=== PATIENT | male | born 1995 | race Caucasian/White ===

== ENCOUNTER → 2018-03-15 | Outpatient (CLI) | payer BC ==
--- NOTE | 2018-03-15 16:07 | RAD ---
Scrotal ultrasound History: Right scrotal pain for a few days. Comparison: None. Technique: Grayscale, color Doppler, and spectral Doppler imaging was performed of the scrotum and contents. Findings: Right testicle measures 2.3 x 2.4 x 4.5 cm. Left testicle measures 3.6 x 2.0 x 4.5 cm. Both testicles have homogeneous echogenicity and are without evidence of mass. The right epididymis demonstrates small cyst versus spermatocele measuring 5 mm. Left epididymis demonstrates small cyst versus spermatocele measuring 6 mm. Small bilateral hydroceles are seen. Bilateral testicles demonstrate normal vascular flow upon Doppler interrogation. There is no evidence of torsion. Impression: 1. No evidence of testicular mass or torsion. 2. Small bilateral epididymal cysts versus spermatoceles. 3. Small bilateral hydroceles. Electronically signed by: Jc Chung MD (03/15/2018 4:03 PM) [place] [id number]
== END | disposition home or self-care (01) ==
LOC: US 14:51
PROVIDERS: ATTEND Nurse Practitioner Family
DX: N50.811 Right testicular pain (principal); N50.82 Scrotal pain; N50.89 Other specified disorders of the male genital organs; N43.3 Hydrocele, unspecified
CPT/HCPCS: 76870

== ENCOUNTER 2020-11-11 14:17 | Emergency (ER) | payer BC ==
[~2020-11-11] VITALS: Ht 167.6 cm; Wt 61.3 kg
--- NOTE | 2020-11-11 14:36 | EKG ---
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
--- NOTE | 2020-11-11 14:51 | RAD ---
EXAM: Chest, single view. HISTORY: Chest pain. COMPARISON: None. FINDINGS: A frontal view of the chest is obtained. There is no infiltrate, protrusion or pneumothorax . The heart is normal in size. IMPRESSION: No acute pulmonary finding. Electronically signed by: Tamiko Traylor MD (11/11/2020 2:48 PM) [id number]
--- NOTE | 2020-11-11 14:55 | PHYS DOC ---
General Adult EDM: Chief Complaint: CHEST PAIN HPI: HPI: 25-year-old male past medical history of spontaneous pneumothoraces, presents to the ED with complaints of sudden onset nonradiating sharp left-sided chest pain that started 1 hour prior to arrival. 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 Primary care physician is Dr. Gibson. Patient primarily concerned for pneumothoraces. Has never tested positive for Covid. States ever since his lungs were cemented he has had sharp stabbing pains over his left chest and sometimes down his left arm. No history of head, neck or left upper extremity trauma. Denies any associated sensory or motor deficits, weakness, paralysis or paresthesias. Denies any cocaine abuse. Review of Systems: Review of Systems: Constitutional: Denies fever or chills Eyes: Denies change in visual acuity HENT: Denies nasal congestion or sore throat Respiratory: Denies cough or shortness of breath or hemoptysis or increased work of breathing Cardiovascular: Denies syncope or edema GI: Denies abdominal pain, nausea, vomiting, bloody stools or diarrhea : Denies dysuria or hematuria Musculoskeletal: Denies back pain or joint pain Integument: Denies rash or diaphoresis Neurologic: Denies headache, focal weakness or sensory changes Endocrine: Denies polyuria or polydipsia Lymphatic: Denies swollen glands Psychiatric: Denies depression or anxiety Physical Exam: PE: Constitutional: Well developed, well nourished, no acute distress, non-toxic appearance. HENT: Normocephalic, atraumatic, Eyes: EOMI, conjunctiva normal, no discharge. Neck: Normal range of motion, supple, Cardiovascular: S1/2 present, regular rhythm Lungs & Thorax: Speaking in full sentences, bilateral equal chest rise, no tachypnea or increased work of breathing, bilateral breath sounds-anterior and posteriorly, Abdomen: soft, no tenderness, Skin: Warm, dry, no erythema, no rash. [] Back: No tenderness, no CVA tenderness. [] Extremities: No tenderness, no cyanosis, no edema Neurologic: Alert and oriented X 3, normal motor function, normal sensory function, no focal deficits noted. [] Psychologic: Affect normal, judgement normal, mood -anxious EKG: EKG: Sinus rhythm at 59 bpm, no axis deviation, normal intervals, no T wave inversions, no ST elevations or ST depressions Radiology/Procedures: Radiology/Procedures: IMAGING REPORT Signed PATIENT: LIV MALLORY ACCOUNT: [id number] : 1995 LOCATION: ER AGE: 25 SEX: M EXAM STATUS: REG ER ORD. PHYSICIAN: MIRIAM CHAVEZ DO REASON: left cp PROCEDURE: CHEST AP ONLY EXAM: Chest, single view. HISTORY: Chest pain. COMPARISON: None. FINDINGS: A frontal view of the chest is obtained. There is no infiltrate, protrusion or pneumothorax. The heart is normal in size. IMPRESSION: No acute pulmonary finding. Electronically signed by: Tamiko Osuna MD (11/11/2020 2:48 PM) [id number] DICTATED AND SIGNED BY: TAMIKO OSUNA MD DATE: 11/11/20 1448 CC: MATTHEW GIBSON; MIRIAM CHAVEZ DO ~MTH0 0 Heart Score: Risk Factors: Risk Factors: DM, Current or recent (<one month) smoker, HTN, HLP, family history of CAD, obesity. Risk Scores: Score 0 - 3: 2.5% MACE over next 6 weeks - Discharge Home Score 4 - 6: 20.3% MACE over next 6 weeks - Admit for Clinical Observation Score 7 - 10: 72.7% MACE over next 6 weeks - Early Invasive Strategies Course & Med Decision Making: Course & Med Decision Making Pertinent Labs and Imaging studies reviewed. (See chart for details) Concern for atypical chest pain -highly suspect neuropathic involvement. Patient's primary concern with was whether or not he had a pneumothorax (is aware it still possible after pleurodesis). Will prescribe gabapentin and recommend [id number] analgesia as needed. Has no Covid symptoms and is saturating 98% on RA. Will discharge home with strict ED return precautions were given for worsening chest pain, diaphoresis, nausea, vomiting, neurologic deficits or increased work of breathing. Encouraged urgent outpatient follow-up with PMD and pulmonology prn. Life-threatening processes were considered but are low suspicion at this time, given history, physical exam and ED workup. Pt was educated on all prescription medications and adverse effects. All patient's questions were answered and pt was stable at time of discharge. Life/limb-threatening differential includes but is not limited to, acute myocardial infarction, aortic dissection, congestive heart failure, esophageal injury including rupture, surgical abdomen, arrhythmia, cardiomyopathy, myocarditis, pericarditis, peptic ulcer disease, pneumomediastinum, pneumonia, pneumothorax, pulmonary embolus, unstable angina, rib fracture, contusion, pericardial tamponade or effusion, pulmonary contusion I spoken with the patient and her caregivers. I explained the patient's condition, diagnoses and treatment plan based on the information available to me at this time. I have answered the patient and her caregiver's questions and addressed any concerns. The patient and her caregivers have a good und erstanding of patient's diagnosis, condition and treatment plan as can be expected at this point. Vital signs have been stable. Patient's condition is stable and appropriate for discharge from the emergency department. Patient will pursue further outpatient evaluation with primary care physician or other designated or consulting physician as outlined in the discharge instructions. The patient and/or caregivers are agreeable to this plan of care and follow-up instructions have been explained in detail. The patient and/or caregivers have received these instructions in written form and have expressed an understanding of the discharge instructions. The patient and/or caregivers are aware that any significant change of condition or worsening of symptoms sh ould prompt immediate return to this or the closest emergency department or call to 911. Sohan Disclaimer: Sohan Disclaimer: This electronic medical record was generated, in whole or in part, using a voice recognition dictation system. Departure Departure: Impression: Primary Impression: Chest pain Disposition: 01 DC HOME SELF CARE/HOMELESS Condition: STABLE Referrals: MATTHEW GIBSON (PCP) within 1 week Patient Instructions: Chest Pain (Nonspecific) Additional Instructions: FOLLOW UP WITH: [facility] Address: [address] [facility] [address] [place] [address] FOLLOW UP WITH CARDIOLOGY: [facility] Cardiology Address: [address] [facility] [address] [place] [address] EMERGENCY DEPARTMENT GENERAL DISCHARGE INSTRUCTIONS Thank you for coming to [facility] (ED) today and trusting us with you care. We trust that you had a positivie experience in our Emergency Department. If you wish to speak to the department management, you may call the director at [phone]. YOUR FOLLOW UP INSTRUCTIONS ARE FOLLOWS: 1. Do you have a private Doctor? If you do not have a private doctor, please ask for a resource list of physicians or clinics that may be able to assist you with follow up care. 2. The Emergency Physician has interpreted your x-rays. The X-Ray specialist will also review them. If there is a change in the findings, you will be notified in 48 hours when at all possible. 3. A lab test or culture has been done, your results will be reviewed and you will be notified if you need a change in treatment. ADDITIONAL INSTRUCTIONS AND INFORMATION: 1. Your care today has been supervised by a physician who is specially trained in emergency care. Many problems require more than one evaluation for a complete diagnosis and treatment. We recommend that you schedule your follow up appointment as recommended to ensure complete treatment of you illness or injury. If you are unable to obtain follow up care and continue to have a problem, or if your condition worsens, we recommend that you return to the ED. 2. We are not able to safely determine your condition over the phone nor are we able to give sound medical advice over the phone. For these safety reasons, if you call for medical advice we will ask you to come to the ED for further evaluation. 3. If you have any questions regarding these discharge instructions please call the ED at [phone]. SAFETY INFORMATION: In the interest of safety, wellness, and injury prevention; we encourage you to wear your sealbelt, if you smoke; quite smoking, and we encourage family to use a protective helmet for bicycling and other sporting events that present an increased risk for head injury. IF YOUR SYMPTOMS WORSEN OR NEW SYMPTOMS DEVELOP, OR YOU HAVE CONCERNS ABOUT YOUR CONDITION; OR IF YOUR CONDITION WORSENS WHILE YOU ARE WAITING FOR YOUR FOLLOW UP APPOINTMENT; EITHER CONTACT YOUR PRIMARY CARE DOCTOR, THE PHYSICIAN WHOSE NAME AND NUMBER YOU WERE GIVEN, OR RETURN TO THE ED IMMEDIATELY. Scripts Gabapentin (GABAPENTIN ) 300 Mg Capsule 300 MG PO TID for NEUROGENIC PAIN for 6 Days, #18 CAP Prov: MIRIAM CHAVEZ DO 11/11/20 MIRIAM CHAVEZ DO Nov 11, 2020 14:55
[2020-11-11] MEDS ORDERED: GABA-586 PO (16:00)
[2020-11-11 16:06] VITALS: BP 103/57
== END 2020-11-11 16:06 | disposition home or self-care (01) ==
LOC: ER 14:17
DX: R07.89 Other chest pain (principal)
CPT/HCPCS: 71045; 93005; 99283